=== PATIENT | female | born 1980 | race Two or more races ===

== ENCOUNTER → 2017-02-26 | Outpatient (REF) | payer OTHER | LOC: M SFHCLERA 13:25 | PROVIDERS: ATTEND Nurse Practitioner Family | DX: R53.81 Other malaise (principal) ==

== ENCOUNTER → 2017-03-27 | Outpatient (REF) | payer OTHER | LOC: M LAB REF 13:00 | PROVIDERS: ATTEND Family Medicine | DX: Z01.419 Encounter for gynecological examination (general) (routine) without abnormal findings (principal); Z11.51 Encounter for screening for human papillomavirus (HPV) ==

== ENCOUNTER → 2018-08-23 | Outpatient (REF) | payer OTHER | LOC: M SFHCLERA 14:16 | PROVIDERS: ATTEND Family Medicine | DX: R30.0 Dysuria (principal) | CPT/HCPCS: 81002; 87086; G0463 ==